=== PATIENT | female | born 1950 | race Caucasian/White ===

== ENCOUNTER → 2018-11-09 14:20 | Outpatient (CLI) | payer MEDICARE, SELFPAY ==
[2018-11-09 15:52] LABS: CRP 6.33 mg/L (0.0-3.0)
[2018-11-11 20:07] LABS: Endomysial Antibody IgA Negative (Negative); Immunoglobulin A 62 mg/dL (87-352)
[2018-11-12 09:29] LABS: t-Transglutaminase IgA <2 U/mL (0-3)
== END ==
PROVIDERS: Family Provider Internal Medicine; PCP Internal Medicine; Referring Provider Internal Medicine Gastroenterology; Visit Provider Internal Medicine Gastroenterology
DX: R19.7 Diarrhea, unspecified (principal)
CPT/HCPCS: 36415; 82784; 83516; 86140; 86255